=== PATIENT | male | born 1970 | race Caucasian/White ===

== ENCOUNTER 2020-09-05 11:34 | Inpatient (IN) | payer MEDICAID ==
[2020-09-05] MEDS ORDERED: Sodium Chloride 0.9% 1,000 ML IV ONE (11:41)
[2020-09-05] MEDS ORDERED: LORazepam 2 MG/ML SDV IVPUSH ONE ×2 (11:51→12:11)
--- NOTE | 2020-09-05 11:54 | EDM.PDOCBH ---
ED HPI GENERAL MEDICAL PROBLEM - General Chief Complaint: Drug or Alcohol Abuse Stated Complaint: ALCOHOL WITHDRAWALS Time Seen by Provider: 09/05/20 11:36 Source of Information: Reports: Patient History Limitations: Reports: No Limitations - History of Present Illness INITIAL COMMENTS - FREE TEXT/NARRATIVE: HISTORY AND PHYSICAL: History of present illness: Patient is a 50-year-old male who presents to the emergency room with alcohol withdrawal symptoms. He states he has had a longstanding history with alcohol abuse and recently went on a 2-week pandya in which he has been drinking 750 mL of vodka daily. Prior to this pandya he had completed alcohol treatment at [facility]. States he has seizures when trying to "come off on my own". Patient's last drink was last evening around midnight. He states he woke up this morning feeling tremulous, anxious and slightly nauseated. He is requesting help with abstaining from alcohol use. Patient denies any fever, chi lls, headache, change in vision, syncope or near syncope. Denies any chest pain, back pain, shortness of breath or cough. Denies any abdominal pain, nausea, vomiting, diarrhea, constipation or dysuria. Has not noted any blood in urine or stool. Patient has been eating and drinking appropriately. Review of systems: As per history of present illness and below otherwise all systems reviewed and negative. Past medical history: As per history of present illness and as reviewed below otherwise noncontributory. Surgical history: As per history of present illness and as reviewed below otherwise noncontributory. Social history: See social history for further information Family history: As per history of present illness and as reviewed below otherwise noncontributory. Physical exam: General: Well developed and well nourished. Alert and orientated x 3. Nontoxic in appearance and in no acute distress. Vital signs are stable and have been reviewed by me. Nursing notes were reviewed. HEENT: Atraumatic, normocephalic, pupils equal and reactive bilaterally, negative for conjunctival pallor or scleral icterus, mucous membranes moist, TMs normal bilaterally, throat clear, neck supple, nontender, trachea midline. No drooling or trismus noted. No meningeal signs. No hot potato voice noted. Lungs: Clear to auscultation, breath sounds equal bilaterally, chest nontender. Normal work of breathing, no accessory muscles used. Heart: S1S2, regular rate and rhythm without overt murmur Abdomen: Soft, nondistended, nontender. Negative for masses or hepatosplenomegaly. Negative for costovertebral tenderness. Pelvis: Stable nontender. Skin: Intact, warm, dry. No lesions or rashes noted. Hematologic: No petechiae or purpra. Mucosa appropriate color and normal nail bed color and refill. Extremities: Atraumatic, moves all extremities per self without difficulty or deficits, negative for cords or calf pain. Neurovascular unremarkable. Neuro: Awake, alert, oriented. Cranial nerves II through XII unremarkable. Cerebellum unremarkable. Motor and sensory unremarkable throughout. Exam nonfocal. Psychiatric: Mood and affect are appropriate. Normal thought process. Answering questions appropriately. Notes: CIWA 11: No confusion, visual or auditory hallucinations. Patient is agreeable to lab work, IV Ativan and fluids at this time. His vital signs remained stable. Patient does express that he would like to be admitted as he is concerned he could have seizures if he is discharged home. I have talked with the patient about today's findings, in addition to providing specific details for plan of care. He is more comfortable after receiving the IV Ativan and fluids. Dr. Amador was consulted on this case and he is agreeable to keeping him for further care and management. Diagnostics: CBC, CMP, EKG, Magnesium, ETOH, UA, Drug Screen Therapeutics: IV fluids, Ativan, banana bag Impression: Alcohol withdrawal Plan: Inpatient admission to [facility] Definitive disposition and diagnosis as appropriate pending reevaluation and review of above. - Related Data Allergies Allergy/AdvReac Type Severity Reaction Status Date / Time No Known Allergies Allergy Verified 09/05/20 11:45 Home Meds: Home Meds . [No Known Home Meds] 09/05/20 [History] ED ROS GENERAL - Review of Systems Review Of Systems: Comprehensive ROS is negative, except as noted in HPI. ED EXAM, BEHAVIORAL HEALTH - Physical Exam Exam: See Below (See dictation) COURSE, BEHAVIORAL HEALTH COMP - Course Vital Signs: Last Vital Signs Temp 97.3 F 09/05/20 11:46 Pulse 78 09/05/20 11:46 Resp 19 09/05/20 11:46 BP 153/85 H 09/05/20 11:46 Pulse Ox 98 09/05/20 11:46 Orders, Labs, Meds: Active Orders 24 hr Category Date Time Status Admission Status [Patient Status] [ADT] Stat ADT 09/05/20 14:31 Ordered EKG Documentation Completion [RC] STAT Care 09/05/20 11:54 Active DRUG SCREEN, URINE [URCHEM] Stat Lab 09/05/20 11:38 Ordered UA RFX JESSY AND CULT IF INDIC [URIN] Stat Lab 09/05/20 11:38 Ordered Laboratory Tests 09/05/20 09/05/20 09/05/20 Range/Units 11:53 11:53 13:17 WBC 4.03 (4.0-11.0) K/uL RBC 3.62 L (4.50-5.90) M/uL Hgb 13.4 (13.0-17.0) g/dL Hct 39.6 (38.0-50.0) % MCV 109.4 H (80.0-98.0) fL MCH 37.0 H (27.0-32.0) pg MCHC 33.8 (31.0-37.0) g/dL RDW Std Deviation 54.4 (28.0-62.0) fl RDW Coeff of Nia 14 (11.0-15.0) % Plt Count 88 L (150-400) K/uL MPV 10.10 (7.40-12.00) fL Neut % (Auto) 60.7 (48.0-80.0) % Lymph % (Auto) 27.5 (16.0-40.0) % [place] % (Auto) 9.4 (0.0-15.0) % Eos % (Auto) 1.7 (0.0-7.0) % Baso % (Auto) 0.7 (0.0-1.5) % Neut # (Auto) 2.4 (1.4-5.7) K/uL Lymph # (Auto) 1.1 (0.6-2.4) K/uL [place] # (Auto) 0.4 (0.0-0.8) K/uL Eos # (Auto) 0.1 (0.0-0.7) K/uL Baso # (Auto) 0.0 (0.0-0.1) K/uL Nucleated RBC % 0.0 /100WBC Nucleated RBCs # 0 K/uL Sodium 138 (136-148) mmol/L Potassium 3.9 (3.5-5.1) mmol/L Chloride 100 (98-107) mmol/L Carbon Dioxide 23.6 (21.0-32.0) mmol/L BUN 7 (7.0-18.0) mg/dL Creatinine 0.7 L (0.8-1.3) mg/dL Est Cr Clr Drug Dosing 122.14 mL/min Estimated GFR (MDRD) > 60.0 ml/min Glucose 99 (74-106) mg/dL Calcium 8.5 (8.5-10.1) mg/dL Magnesium 1.5 L (1.8-2.4) mg/dL Total Bilirubin 0.5 (0.2-1.0) mg/dL AST 37 (15-37) IU/L ALT 25 (14-63) IU/L Alkaline Phosphatase 82 (46-116) U/L Total Protein 7.2 (6.4-8.2) g/dL Albumin 3.9 (3.4-5.0) g/dL Globulin 3.3 (2.6-4.0) g/dL Albumin/Globulin Ratio 1.2 (0.9-1.6) Ethyl Alcohol 134 mg/dL SARS-CoV-2 RNA (KRUNAL) NEGATIVE (NEGATIVE) Medications Discontinued Medications Generic Name Dose Route Start Last Admin Trade Name Uzielq PRN Reason Stop Dose Admin Sodium Chloride 1,000 mls @ 999 mls/hr 09/05/20 11:41 09/05/20 12:09 Normal Saline IV 09/05/20 12:41 999 mls/hr STAT ONE Administration Multivitamins/Minerals 10 ml/ 1,011.2 mls @ 999 mls/hr 09/05/20 12:28 09/05/20 13:13 Thiamine HCl 100 mg/ Folic IV 09/05/20 13:28 999 mls/hr Acid 1 mg/ Sodium Chloride ONETIME ONE Administration Lorazepam 1 mg 09/05/20 11:51 09/05/20 12:08 Ativan IVPUSH 09/05/20 11:52 1 mg ONETIME ONE Administration Lorazepam 1 mg 09/05/20 12:11 09/05/20 12:16 Ativan IVPUSH 09/05/20 12:12 1 mg ONETIME ONE Administration Departure - Departure Time of Disposition: 14:35 Disposition: Admitted As Inpatient 66 Clinical Impression: Alcohol withdrawal syndrome Qualifiers: Complication of substance-induced condition: uncomplicated Qualified Code(s): F10.230 - Alcohol dependence with withdrawal, uncomplicated - Discharge Information Forms: ED Department Discharge Sepsis Event Note (ED) - Evaluation Sepsis Screening Result: No Definite Risk - Focused Exam Vital Signs: Vital Signs Temp Pulse Resp BP Pulse Ox 09/05/20 11:46 97.3 F 78 19 153/85 H 98 - My Orders Last 24 Hours: My Active Orders 09/05/20 11:38 DRUG SCREEN, URINE [URCHEM] Stat UA RFX JESSY AND CULT IF INDIC [URIN] Stat 09/05/20 11:54 EKG Documentation Completion [RC] STAT 09/05/20 14:31 Admission Status [Patient Status] [ADT] Stat - Assessment/Plan Last 24 Hours: My Active Orders 09/05/20 11:38 DRUG SCREEN, URINE [URCHEM] Stat UA RFX JESSY AND CULT IF INDIC [URIN] Stat 09/05/20 11:54 EKG Documentation Completion [RC] STAT 09/05/20 14:31 Admission Status [Patient Status] [ADT] Stat
[2020-09-05 12:16] LABS: BLOOD UREA NITROGEN,BUN 7 mg/dL (7.0-18.0); CARBON DIOXIDE,CO2 23.6 mmol/L (21.0-32.0); CHLORIDE,CL 100 mmol/L (98-107); GLUCOSE RANDOM 99 mg/dL (74-106); POTASSIUM,K 3.9 mmol/L (3.5-5.1); SODIUM,NA 138 mmol/L (136-148)
[2020-09-05] MEDS ORDERED: MVI, Adult with Vitamin K 10 ML, Thiamine 100 MG, Folic Acid 1 MG in Sodium Chloride 0.... IV ONE ×4 (12:28)
--- NOTE | 2020-09-05 15:24 | PCM.SN.2 ---
#1 Interpretation EKG Date: 09/05/20 Time: 12:12 Rhythm: Other (Sinus Tachycardia) Rate (Beats/Min): 101 [place]: Normal P-Wave: Present QRS: Normal ST-T: Normal QT: Normal Comparison: NA - No Prior EKG EKG Interpretation Comments: Sinus Tachycardia
[2020-09-05] MEDS ORDERED: Ondansetron 4 MG/2 ML SDV IVPUSH PRN (15:28)
[2020-09-05] MEDS ORDERED: Magnesium Sulfate/Water 2 GM/50 ML Premix Bag IV ONE (15:29)
--- NOTE | 2020-09-05 15:32 | PCM.HP.2 ---
H&P History of Present Illness - General Date of Service: 09/05/20 Admit Problem/Dx: Admission Diagnosis/Problem Admission Diagnosis/Problem Alcohol withdrawal syndrome - History of Present Illness Initial Comments - Free Text/Narative: 50 yo male with pmh of alcohol abuse patient reports finishing an inpatient r ehab last month. He was sober for two weeks then started drinking two weeks ago. He drinks 750 mls a day. He reports tremors and his last drink was last night. He presents to the ED today requesting detox. He is living in a Hotel and moved here to be closer to family. He denies any fevers, or shortness of breath - Related Data Allergies/Adverse Reactions: Allergies Allergy/AdvReac Type Severity Reaction Status Date / Time No Known Allergies Allergy Verified 09/05/20 11:45 Home Medications: Home Meds . [No Known Home Meds] 09/05/20 [History] Past Medical History - Past Health History Medical/Surgical History: Denies Medical/Surgical History Social & Family History - Tobacco Use Tobacco Use Status *Q: Never Tobacco User - Caffeine Use Caffeine Use: Reports: None - Alcohol Use Days Per Week of Alcohol Use: 7 Number of Drinks Per Day: 1 Total Drinks Per Week: 7 - Recreational Drug Use Recreational Drug Use: No H&P Review of Systems - Review of Systems: Review Of Systems: Comprehensive ROS is negative, except as noted in HPI. Exam - Exam Exam: See Below - Vital Signs Vital Signs: Last Vital Signs Temp 36.3 C 09/05/20 11:46 Pulse 78 09/05/20 11:46 Resp 19 09/05/20 11:46 BP 153/85 H 09/05/20 11:46 Pulse Ox 98 09/05/20 11:46 Weight: 74.843 kg - Exam General: Alert, Oriented HEENT: Mucosa Moist & [place] Lungs: Clear to Auscultation, Normal Respiratory Effort Cardiovascular: Regular Rate, Regular Rhythm GI/Abdominal Exam: Normal Bowel Sounds, Soft, Non-Tender Extremities: Non-Tender, No Pedal Edema Skin: Warm, Dry, Intact - Patient Data Lab Results Last 24 hrs: Laboratory Results - last 24 hr 09/05/20 09/05/20 09/05/20 Range/Units 11:53 11:53 13:15 WBC 4.03 (4.0-11.0) K/uL RBC 3.62 L (4.50-5.90) M/uL Hgb 13.4 (13.0-17.0) g/dL Hct 39.6 (38.0-50.0) % MCV 109.4 H (80.0-98.0) fL MCH 37.0 H (27.0-32.0) pg MCHC 33.8 (31.0-37.0) g/dL RDW Std Deviation 54.4 (28.0-62.0) fl RDW Coeff of Nia 14 (11.0-15.0) % Plt Count 88 L (150-400) K/uL MPV 10.10 (7.40-12.00) fL Neut % (Auto) 60.7 (48.0-80.0) % Lymph % (Auto) 27.5 (16.0-40.0) % [facility] % (Auto) 9.4 (0.0-15.0) % Eos % (Auto) 1.7 (0.0-7.0) % Baso % (Auto) 0.7 (0.0-1.5) % Neut # (Auto) 2.4 (1.4-5.7) K/uL Lymph # (Auto) 1.1 (0.6-2.4) K/uL [facility] # (Auto) 0.4 (0.0-0.8) K/uL Eos # (Auto) 0.1 (0.0-0.7) K/uL Baso # (Auto) 0.0 (0.0-0.1) K/uL Nucleated RBC % 0.0 /100WBC Nucleated RBCs # 0 K/uL Sodium 138 (136-148) mmol/L Potassium 3.9 (3.5-5.1) mmol/L Chloride 100 (98-107) mmol/L Carbon Dioxide 23.6 (21.0-32.0) mmol/L BUN 7 (7.0-18.0) mg/dL Creatinine 0.7 L (0.8-1.3) mg/dL Est Cr Clr Drug Dosing 122.14 mL/min Estimated GFR (MDRD) > 60.0 ml/min Glucose 99 (74-106) mg/dL Calcium 8.5 (8.5-10.1) mg/dL Magnesium 1.5 L (1.8-2.4) mg/dL Total Bilirubin 0.5 (0.2-1.0) mg/dL AST 37 (15-37) IU/L ALT 25 (14-63) IU/L Alkaline Phosphatase 82 (46-116) U/L Total Protein 7.2 (6.4-8.2) g/dL Albumin 3.9 (3.4-5.0) g/dL Globulin 3.3 (2.6-4.0) g/dL Albumin/Globulin Ratio 1.2 (0.9-1.6) Urine Color YELLOW Urine Appearance CLEAR Urine pH 6.0 (5.0-8.0) Ur Specific [place] 1.025 (1.001-1.035) Urine Protein NEGATIVE (NEGATIVE) mg/dL Urine Glucose (UA) NEGATIVE (NEGATIVE) mg/dL Urine Ketones TRACE H (NEGATIVE) mg/dL Urine Occult Blood NEGATIVE (NEGATIVE) Urine Nitrite NEGATIVE (NEGATIVE) Urine Bilirubin NEGATIVE (NEGATIVE) Urine Urobilinogen 0.2 (<2.0) EU/dL Ur Leukocyte Esterase NEGATIVE (NEGATIVE) Urine Opiates Screen (NEGATIVE) Ur Oxycodone Screen (NEGATIVE) Urine Methadone Screen (NEGATIVE) Ur Barbiturates Screen (NEGATIVE) Ur Phencyclidine Scrn (NEGATIVE) Ur Amphetamine Screen (NEGATIVE) U Methamphetamines Scrn (NEGATIVE) U Benzodiazepines Scrn (NEGATIVE) U Cocaine Metab Screen (NEGATIVE) U Marijuana (THC) Screen (NEGATIVE) Ethyl Alcohol 134 mg/dL SARS-CoV-2 RNA (KRUNAL) (NEGATIVE) 09/05/20 09/05/20 Range/Units 13:15 13:17 WBC (4.0-11.0) K/uL RBC (4.50-5.90) M/uL Hgb (13.0-17.0) g/dL Hct (38.0-50.0) % MCV (80.0-98.0) fL MCH (27.0-32.0) pg MCHC (31.0-37.0) g/dL RDW Std Deviation (28.0-62.0) fl RDW Coeff of Nia (11.0-15.0) % Plt Count (150-400) K/uL MPV (7.40-12.00) fL Neut % (Auto) (48.0-80.0) % Lymph % (Auto) (16.0-40.0) % [facility] % (Auto) (0.0-15.0) % Eos % (Auto) (0.0-7.0) % Baso % (Auto) (0.0-1.5) % Neut # (Auto) (1.4-5.7) K/uL Lymph # (Auto) (0.6-2.4) K/uL [place] # (Auto) (0.0-0.8) K/uL Eos # (Auto) (0.0-0.7) K/uL Baso # (Auto) (0.0-0.1) K/uL Nucleated RBC % /100WBC Nucleated RBCs # K/uL Sodium (136-148) mmol/L Potassium (3.5-5.1) mmol/L Chloride (98-107) mmol/L Carbon Dioxide (21.0-32.0) mmol/L BUN (7.0-18.0) mg/dL Creatinine (0.8-1.3) mg/dL Est Cr Clr Drug Dosing mL/min Estimated GFR (MDRD) ml/min Glucose (74-106) mg/dL Calcium (8.5-10.1) mg/dL Magnesium (1.8-2.4) mg/dL Total Bilirubin (0.2-1.0) mg/dL AST (15-37) IU/L ALT (14-63) IU/L Alkaline Phosphatase (46-116) U/L Total Protein (6.4-8.2) g/dL Albumin (3.4-5.0) g/dL Globulin (2.6-4.0) g/dL Albumin/Globulin Ratio (0.9-1.6) Urine Color Urine Appearance Urine pH (5.0-8.0) Ur Specific [place] (1.001-1.035) Urine Protein (NEGATIVE) mg/dL Urine Glucose (UA) (NEGATIVE) mg/dL Urine Ketones (NEGATIVE) mg/dL Urine Occult Blood (NEGATIVE) Urine Nitrite (NEGATIVE) Urine Bilirubin (NEGATIVE) Urine Urobilinogen (<2.0) EU/dL Ur Leukocyte Esterase (NEGATIVE) Urine Opiates Screen NEGATIVE (NEGATIVE) Ur Oxycodone Screen NEGATIVE (NEGATIVE) Urine Methadone Screen NEGATIVE (NEGATIVE) Ur Barbiturates Screen NEGATIVE (NEGATIVE) Ur Phencyclidine Scrn NEGATIVE (NEGATIVE) Ur Amphetamine Screen NEGATIVE (NEGATIVE) U Methamphetamines Scrn NEGATIVE (NEGATIVE) U Benzodiazepines Scrn NEGATIVE (NEGATIVE) U Cocaine Metab Screen NEGATIVE (NEGATIVE) U Marijuana (THC) Screen NEGATIVE (NEGATIVE) Ethyl Alcohol mg/dL SARS-CoV-2 RNA (KRUNAL) NEGATIVE (NEGATIVE) Result Diagrams: 09/05/20 11:53 09/05/20 11:53 Sepsis Event Note - Evaluation Sepsis Screening Result: No Definite Risk - Focused Exam Vital Signs: Vital Signs Temp Pulse Resp BP Pulse Ox 09/05/20 11:46 36.3 C 78 19 153/85 H 98 Problem List Initiated/Reviewed/Updated: Yes Orders Last 24hrs: Active Orders 24 hr Category Date Time Status Admission Status [Patient Status] [ADT] Stat ADT 09/05/20 14:31 Active Antiembolic Devices [RC] PER UNIT ROUTINE Care 09/05/20 15:29 Ordered EKG Documentation Completion [RC] STAT Care 09/05/20 11:54 Active Oxygen Therapy [RC] PRN Care 09/05/20 15:28 Ordered VTE/DVT Education [RC] PER UNIT ROUTINE Care 09/05/20 15:28 Ordered Vital Signs [RC] Q4H Care 09/05/20 15:28 Ordered Regular Diet [DIET] Diet 09/05/20 Breakfast Ordered CBC WITH AUTO DIFF [HEME] AM Lab 09/06/20 05:11 Ordered COMPREHENSIVE METABOLIC PN,CMP [CHEM] AM Lab 09/06/20 05:11 Ordered MAGNESIUM [CHEM] AM Lab 09/06/20 05:11 Ordered PHOSPHORUS [CHEM] AM Lab 09/06/20 05:11 Ordered Folic Acid Med 09/06/20 09:00 Ordered 1 mg PO DAILY LORazepam [Ativan] Med 09/05/20 15:22 Ordered See Protocol IVPUSH Q4H PRN Magnesium Sulfate/Water [Magnesium Sulfate in Water Med 09/05/20 15:29 Once Premix] 2 gm IV ONETIME ONE Ondansetron [Zofran] Med 09/05/20 15:28 Ordered 4 mg IVPUSH Q4H PRN Thiamine [Vitamin B-1] 100 mg Med 09/06/20 09:00 Active Sodium Chloride 0.9% [Normal Saline] 100 ml IV DAILY Sequential Compression Device [OM.PC] Per Unit Routine Oth 09/05/20 15:28 Ordered Resuscitation Status Routine Resus Stat 09/05/20 15:28 Ordered Medication Orders Folic Acid (Folic Acid) 1 mg PO DAILY [place] Thiamine HCl 100 mg/ Sodium (Chloride) 101 mls @ 202 mls/hr IV DAILY [place] Lorazepam (Ativan) 0 mg IVPUSH Q4H PRN; Protocol PRN Reason: CIWAA Ondansetron HCl (Zofran) 4 mg IVPUSH Q4H PRN PRN Reason: Nausea Assessment/Plan Comment:: 50 yo male admitted for ETOH detox. We will place on CIWAA protocol with prn ativan, thiamin and folic acid.
[2020-09-05] MEDS ORDERED: Magnesium Sulfate/Water 2 GM/50 ML BAG IV ONE (15:45)
[2020-09-05] MEDS: LORazepam 2 MG/ML SDV IVPUSH PRN (16:00)
[2020-09-06 06:40] LABS: BLOOD UREA NITROGEN,BUN 5 mg/dL (7.0-18.0); CARBON DIOXIDE,CO2 26.9 mmol/L (21.0-32.0); CHLORIDE,CL 101 mmol/L (98-107); GLUCOSE RANDOM 91 mg/dL (74-106); POTASSIUM,K 4.1 mmol/L (3.5-5.1); SODIUM,NA 137 mmol/L (136-148)
[2020-09-06] MEDS: LORazepam 2 MG/ML SDV IVPUSH PRN (08:11)
[2020-09-06] MEDS: Folic Acid 1 MG Tab PO SCH (08:11)
[2020-09-06] MEDS ORDERED: Magnesium Sulfate (4.06 MEQ/ML) 1 GM/2 ML SDV IV ONE (08:25)
[2020-09-06] MEDS: Thiamine 100 MG in Sodium Chloride 0.9% 100 ML IV SCH (09:00)
[2020-09-06] MEDS: Diazepam 2 MG Tab PO SCH ×2 (11:12→21:01)
[2020-09-06] MEDS: Lactated Ringers 1,000 ML IV SCH ×2 (11:13→21:23)
[2020-09-06] MEDS: Nicotine 14 MG/24 Hr Patch TRDERM SCH (11:13)
--- NOTE | 2020-09-06 11:41 | PCM.PN ---
<Rayray Garces - Last Filed: 09/06/20 11:42> - General Info Date of Service: 09/06/20 Subjective Update: Feeling better but still having overnight "weird dreams" ; no hallucinations. Mild tremors w. fatigue. +Nausea and loose stools. No Vomiting and or abd. pain this AM Functional Status: Reports: Pain Controlled - Review of Systems General: Reports: Fatigue HEENT: Reports: No Symptoms Pulmonary: Reports: No Symptoms Cardiovascular: Reports: No Symptoms Gastrointestinal: Reports: Abdominal Pain, Diarrhea, Nausea. Denies: C onstipation, Vomiting Genitourinary: Reports: No Symptoms Musculoskeletal: Reports: No Symptoms Skin: Reports: No Symptoms Neurological: Reports: Headache, Tremors. Denies: Confusion, Dizziness, Weakness Psychiatric: Reports: Anxiety. Denies: Hallucinations - Patient Data Vitals - Most Recent: Last Vital Signs Temp 98.4 F 09/06/20 07:45 Pulse 87 09/06/20 07:45 Resp 16 09/06/20 07:45 BP 127/78 09/06/20 07:45 Pulse Ox 94 L 09/06/20 07:45 Weight - Most Recent: 78.471 kg I&O - Last 24 Hours: Intake & Output 09/05/20 09/06/20 09/06/20 22:59 06:59 14:59 Intake Total 650 Output Total 800 Balance -150 Lab Results Last 24 Hours: Laboratory Results - last 24 hr 09/05/20 09/05/20 09/05/20 Range/Units 11:53 11:53 13:15 WBC 4.03 (4.0-11.0) K/uL RBC 3.62 L (4.50-5.90) M/uL Hgb 13.4 (13.0-17.0) g/dL Hct 39.6 (38.0-50.0) % MCV 109.4 H (80.0-98.0) fL MCH 37.0 H (27.0-32.0) pg MCHC 33.8 (31.0-37.0) g/dL RDW Std Deviation 54.4 (28.0-62.0) fl RDW Coeff of Nia 14 (11.0-15.0) % Plt Count 88 L (150-400) K/uL MPV 10.10 (7.40-12.00) fL Neut % (Auto) 60.7 (48.0-80.0) % Lymph % (Auto) 27.5 (16.0-40.0) % [place] % (Auto) 9.4 (0.0-15.0) % Eos % (Auto) 1.7 (0.0-7.0) % Baso % (Auto) 0.7 (0.0-1.5) % Neut # (Auto) 2.4 (1.4-5.7) K/uL Lymph # (Auto) 1.1 (0.6-2.4) K/uL [place] # (Auto) 0.4 (0.0-0.8) K/uL Eos # (Auto) 0.1 (0.0-0.7) K/uL Baso # (Auto) 0.0 (0.0-0.1) K/uL Nucleated RBC % 0.0 /100WBC Nucleated RBCs # 0 K/uL Sodium 138 (136-148) mmol/L Potassium 3.9 (3.5-5.1) mmol/L Chloride 100 (98-107) mmol/L Carbon Dioxide 23.6 (21.0-32.0) mmol/L BUN 7 (7.0-18.0) mg/dL Creatinine 0.7 L (0.8-1.3) mg/dL Est Cr Clr Drug Dosing 122.14 mL/min Estimated GFR (MDRD) > 60.0 ml/min Glucose 99 (74-106) mg/dL Calcium 8.5 (8.5-10.1) mg/dL Phosphorus (2.6-4.7) mg/dL Magnesium 1.5 L (1.8-2.4) mg/dL Total Bilirubin 0.5 (0.2-1.0) mg/dL AST 37 (15-37) IU/L ALT 25 (14-63) IU/L Alkaline Phosphatase 82 (46-116) U/L Total Protein 7.2 (6.4-8.2) g/dL Albumin 3.9 (3.4-5.0) g/dL Globulin 3.3 (2.6-4.0) g/dL Albumin/Globulin Ratio 1.2 (0.9-1.6) Urine Color YELLOW Urine Appearance CLEAR Urine pH 6.0 (5.0-8.0) Ur Specific [place] 1.025 (1.001-1.035) Urine Protein NEGATIVE (NEGATIVE) mg/dL Urine Glucose (UA) NEGATIVE (NEGATIVE) mg/dL Urine Ketones TRACE H (NEGATIVE) mg/dL Urine Occult Blood NEGATIVE (NEGATIVE) Urine Nitrite NEGATIVE (NEGATIVE) Urine Bilirubin NEGATIVE (NEGATIVE) Urine Urobilinogen 0.2 (<2.0) EU/dL Ur Leukocyte Esterase NEGATIVE (NEGATIVE) Urine Opiates Screen (NEGATIVE) Ur Oxycodone Screen (NEGATIVE) Urine Methadone Screen (NEGATIVE) Ur Barbiturates Screen (NEGATIVE) Ur Phencyclidine Scrn (NEGATIVE) Ur Amphetamine Screen (NEGATIVE) U Methamphetamines Scrn (NEGATIVE) U Benzodiazepines Scrn (NEGATIVE) U Cocaine Metab Screen (NEGATIVE) U Marijuana (THC) Screen (NEGATIVE) Ethyl Alcohol 134 mg/dL SARS-CoV-2 RNA (KRUNAL) (NEGATIVE) 09/05/20 09/05/20 09/06/20 Range/Units 13:15 13:17 05:40 WBC 4.01 (4.0-11.0) K/uL RBC 3.33 L (4.50-5.90) M/uL Hgb 12.2 L (13.0-17.0) g/dL Hct 36.4 L (38.0-50.0) % MCV 109.3 H (80.0-98.0) fL MCH 36.6 H (27.0-32.0) pg MCHC 33.5 (31.0-37.0) g/dL RDW Std Deviation 55.3 (28.0-62.0) fl RDW Coeff of Nia 14 (11.0-15.0) % Plt Count 59 L (150-400) K/uL MPV 10.60 (7.40-12.00) fL Neut % (Auto) 60.9 (48.0-80.0) % Lymph % (Auto) 27.4 (16.0-40.0) % [place] % (Auto) 9.2 (0.0-15.0) % Eos % (Auto) 2.0 (0.0-7.0) % Baso % (Auto) 0.5 (0.0-1.5) % Neut # (Auto) 2.4 (1.4-5.7) K/uL Lymph # (Auto) 1.1 (0.6-2.4) K/uL [place] # (Auto) 0.4 (0.0-0.8) K/uL Eos # (Auto) 0.1 (0.0-0.7) K/uL Baso # (Auto) 0.0 (0.0-0.1) K/uL Nucleated RBC % 0.0 /100WBC Nucleated RBCs # 0 K/uL Sodium (136-148) mmol/L Potassium (3.5-5.1) mmol/L Chloride (98-107) mmol/L Carbon Dioxide (21.0-32.0) mmol/L BUN (7.0-18.0) mg/dL Creatinine (0.8-1.3) mg/dL Est Cr Clr Drug Dosing mL/min Estimated GFR (MDRD) ml/min Glucose (74-106) mg/dL Calcium (8.5-10.1) mg/dL Phosphorus (2.6-4.7) mg/dL Magnesium (1.8-2.4) mg/dL Total Bilirubin (0.2-1.0) mg/dL AST (15-37) IU/L ALT (14-63) IU/L Alkaline Phosphatase (46-116) U/L Total Protein (6.4-8.2) g/dL Albumin (3.4-5.0) g/dL Globulin (2.6-4.0) g/dL Albumin/Globulin Ratio (0.9-1.6) Urine Color Urine Appearance Urine pH (5.0-8.0) Ur Specific [place] (1.001-1.035) Urine Protein (NEGATIVE) mg/dL Urine Glucose (UA) (NEGATIVE) mg/dL Urine Ketones (NEGATIVE) mg/dL Urine Occult Blood (NEGATIVE) Urine Nitrite (NEGATIVE) Urine Bilirubin (NEGATIVE) Urine Urobilinogen (<2.0) EU/dL Ur Leukocyte Esterase (NEGATIVE) Urine Opiates Screen NEGATIVE (NEGATIVE) Ur Oxycodone Screen NEGATIVE (NEGATIVE) Urine Methadone Screen NEGATIVE (NEGATIVE) Ur Barbiturates Screen NEGATIVE (NEGATIVE) Ur Phencyclidine Scrn NEGATIVE (NEGATIVE) Ur Amphetamine Screen NEGATIVE (NEGATIVE) U Methamphetamines Scrn NEGATIVE (NEGATIVE) U Benzodiazepines Scrn NEGATIVE (NEGATIVE) U Cocaine Metab Screen NEGATIVE (NEGATIVE) U Marijuana (THC) Screen NEGATIVE (NEGATIVE) Ethyl Alcohol mg/dL SARS-CoV-2 RNA (KRUNAL) NEGATIVE (NEGATIVE) 09/06/20 Range/Units 05:40 WBC (4.0-11.0) K/uL RBC (4.50-5.90) M/uL Hgb (13.0-17.0) g/dL Hct (38.0-50.0) % MCV (80.0-98.0) fL MCH (27.0-32.0) pg MCHC (31.0-37.0) g/dL RDW Std Deviation (28.0-62.0) fl RDW Coeff of Nia (11.0-15.0) % Plt Count (150-400) K/uL MPV (7.40-12.00) fL Neut % (Auto) (48.0-80.0) % Lymph % (Auto) (16.0-40.0) % [place] % (Auto) (0.0-15.0) % Eos % (Auto) (0.0-7.0) % Baso % (Auto) (0.0-1.5) % Neut # (Auto) (1.4-5.7) K/uL Lymph # (Auto) (0.6-2.4) K/uL [place] # (Auto) (0.0-0.8) K/uL Eos # (Auto) (0.0-0.7) K/uL Baso # (Auto) (0.0-0.1) K/uL Nucleated RBC % /100WBC Nucleated RBCs # K/uL Sodium 137 (136-148) mmol/L Potassium 4.1 (3.5-5.1) mmol/L Chloride 101 (98-107) mmol/L Carbon Dioxide 26.9 (21.0-32.0) mmol/L BUN 5 L (7.0-18.0) mg/dL Creatinine 0.7 L (0.8-1.3) mg/dL Est Cr Clr Drug Dosing 122.14 mL/min Estimated GFR (MDRD) > 60.0 ml/min Glucose 91 (74-106) mg/dL Calcium 8.4 L (8.5-10.1) mg/dL Phosphorus 2.7 (2.6-4.7) mg/dL Magnesium 1.7 L (1.8-2.4) mg/dL Total Bilirubin 1.3 H (0.2-1.0) mg/dL AST 39 H (15-37) IU/L ALT 25 (14-63) IU/L Alkaline Phosphatase 70 (46-116) U/L Total Protein 5.9 L (6.4-8.2) g/dL Albumin 3.2 L (3.4-5.0) g/dL Globulin 2.7 (2.6-4.0) g/dL Albumin/Globulin Ratio 1.2 (0.9-1.6) Urine Color Urine Appearance Urine pH (5.0-8.0) Ur Specific [place] (1.001-1.035) Urine Protein (NEGATIVE) mg/dL Urine Glucose (UA) (NEGATIVE) mg/dL Urine Ketones (NEGATIVE) mg/dL Urine Occult Blood (NEGATIVE) Urine Nitrite (NEGATIVE) Urine Bilirubin (NEGATIVE) Urine Urobilinogen (<2.0) EU/dL Ur Leukocyte Esterase (NEGATIVE) Urine Opiates Screen (NEGATIVE) Ur Oxycodone Screen (NEGATIVE) Urine Methadone Screen (NEGATIVE) Ur Barbiturates Screen (NEGATIVE) Ur Phencyclidine Scrn (NEGATIVE) Ur Amphetamine Screen (NEGATIVE) U Methamphetamines Scrn (NEGATIVE) U Benzodiazepines Scrn (NEGATIVE) U Cocaine Metab Screen (NEGATIVE) U Marijuana (THC) Screen (NEGATIVE) Ethyl Alcohol mg/dL SARS-CoV-2 RNA (KRUNAL) (NEGATIVE) Med Orders - Current: Current Medications Diazepam (Valium) 5 mg PO BID [facility] Last Admin: 09/06/20 11:12 Dose: 5 mg Documented by: Folic Acid (Folic Acid) 1 mg PO DAILY [facility] Last Admin: 09/06/20 08:11 Dose: 1 mg Documented by: Thiamine HCl 100 mg/ Sodium (Chloride) 101 mls @ 202 mls/hr IV DAILY [facility] Last Admin: 09/06/20 09:00 Dose: 202 mls/hr Documented by: Lactated Ringer's (Ringers, Lactated) 1,000 mls @ 100 mls/hr IV Q10H [facility] Last Admin: 09/06/20 11:13 Dose: 100 mls/hr Documented by: Lorazepam (Ativan) 0 mg IVPUSH Q4H PRN; Protocol PRN Reason: CIWAA Last Admin: 09/06/20 08:11 Dose: 1 mg Documented by: Nicotine (Habitrol) 14 mg TRDERM DAILY [facility] Last Admin: 09/06/20 11:13 Dose: 14 mg Documented by: Ondansetron HCl (Zofran) 4 mg IVPUSH Q4H PRN PRN Reason: Nausea Last Admin: 09/06/20 07:44 Dose: 4 mg Documented by: Discontinued Medications Sodium Chloride (Normal Saline) 1,000 mls @ 999 mls/hr IV STAT ONE Stop: 09/05/20 12:41 Last Admin: 09/05/20 12:09 Dose: 999 mls/hr Documented by: Multivitamins/Minerals 10 ml/Thiamine HCl 100 mg/ Folic Acid 1 mg/ Sodium Chloride 1,011.2 mls @ 999 mls/hr IV ONETIME ONE Stop: 09/05/20 13:28 Last Admin: 09/05/20 13:13 Dose: 999 mls/hr Documented by: Magnesium Sulfate (Magnesium Sulfate In Water Premix) 2 gm in 50 mls @ 50 mls/hr IV ONETIME ONE Stop: 09/05/20 16:44 Last Admin: 09/05/20 16:00 Dose: 50 mls/hr Documented by: Magnesium Sulfate 1 gm/ Sodium (Chloride) 52 mls @ 104 mls/hr IV ONETIME ONE Stop: 09/06/20 09:14 Last Admin: 09/06/20 09:55 Dose: 104 mls/hr Documented by: Lorazepam (Ativan) 1 mg IVPUSH ONETIME ONE Stop: 09/05/20 11:52 Last Admin: 09/05/20 12:08 Dose: 1 mg Documented by: Lorazepam (Ativan) 1 mg IVPUSH ONETIME ONE Stop: 09/05/20 12:12 Last Admin: 09/05/20 12:16 Dose: 1 mg Documented by: Magnesium Sulfate (Magnesium Sulfate In Water Premix) 2 gm IV ONETIME ONE Stop: 09/05/20 15:30 - Exam General: Alert, Oriented HEENT: EOMI Neck: Supple Lungs: Clear to Auscultation, Normal Respiratory Effort Cardiovascular: Regular Rate, Regular Rhythm GI/Abdominal Exam: Soft, Non-Tender Back Exam: Full Range of Motion Neurological: No New Focal Deficit Psy/Mental Status: Alert. No: Anxious Sepsis Event Note - Evaluation Sepsis Screening Result: No Definite Risk - Focused Exam Vital Signs: Vital Signs Temp Pulse Resp BP Pulse Ox 09/06/20 07:45 98.4 F 87 16 127/78 94 L 09/06/20 04:04 97.6 F 85 16 110/80 95 09/05/20 23:48 97.2 F 85 16 127/79 93 L - Problem List Review Problem List Initiated/Reviewed/Updated: Yes - Plan Plan:: 50 yo male admitted for ETOH detox. Day # 2 of ETOH withdrawal: Latest CIWAA: 8 ; continue PRN Ativan Will also start Valium 5 mg BID and wean down as needed. Continue folic/thiamin supplementation. Tremor and concern for decrease oral intake : will start gentle hydration of LR 100 cc/hr ; total 1L Start nicotine patch. Hypomagnesemia: 1 gram Mg given this AM . <Isaiah Esparza - Last Filed: 09/07/20 20:51> - Patient Data Vitals - Most Recent: Last Vital Signs Temp 36.7 C 09/07/20 16:09 Pulse 84 09/07/20 16:09 Resp 20 09/07/20 16:09 BP 124/81 09/07/20 16:09 Pulse Ox 94 L 09/07/20 16:09 I&O - Last 24 Hours: Intake & Output 09/07/20 09/07/20 09/07/20 06:59 14:59 22:59 Intake Total 1604 2000 Output Total 500 Balance 1104 2000 Lab Results Last 24 Hours: Laboratory Results - last 24 hr 09/07/20 09/07/20 Range/Units 05:41 05:41 WBC 2.97 L (4.0-11.0) K/uL RBC 3.45 L (4.50-5.90) M/uL Hgb 12.8 L (13.0-17.0) g/dL Hct 38.0 (38.0-50.0) % MCV 110.1 H (80.0-98.0) fL MCH 37.1 H (27.0-32.0) pg MCHC 33.7 (31.0-37.0) g/dL RDW Std Deviation 55.1 (28.0-62.0) fl RDW Coeff of Nia 14 (11.0-15.0) % Plt Count 50 L (150-400) K/uL MPV 11.20 (7.40-12.00) fL Neut % (Auto) 53.1 (48.0-80.0) % Lymph % (Auto) 35.7 (16.0-40.0) % [place] % (Auto) 7.1 (0.0-15.0) % Eos % (Auto) 3.4 (0.0-7.0) % Baso % (Auto) 0.7 (0.0-1.5) % Neut # (Auto) 1.6 (1.4-5.7) K/uL Lymph # (Auto) 1.1 (0.6-2.4) K/uL [place] # (Auto) 0.2 (0.0-0.8) K/uL Eos # (Auto) 0.1 (0.0-0.7) K/uL Baso # (Auto) 0.0 (0.0-0.1) K/uL Nucleated RBC % 0.0 /100WBC Nucleated RBCs # 0 K/uL Sodium 139 (136-148) mmol/L Potassium 3.6 (3.5-5.1) mmol/L Chloride 103 (98-107) mmol/L Carbon Dioxide 27.3 (21.0-32.0) mmol/L BUN 5 L (7.0-18.0) mg/dL Creatinine 0.7 L (0.8-1.3) mg/dL Est Cr Clr Drug Dosing 122.14 mL/min Estimated GFR (MDRD) > 60.0 ml/min Glucose 91 (74-106) mg/dL Calcium 8.4 L (8.5-10.1) mg/dL Total Bilirubin 0.7 (0.2-1.0) mg/dL AST 80 H (15-37) IU/L ALT 43 (14-63) IU/L Alkaline Phosphatase 65 (46-116) U/L Total Protein 6.1 L (6.4-8.2) g/dL Albumin 3.1 L (3.4-5.0) g/dL Globulin 3.0 (2.6-4.0) g/dL Albumin/Globulin Ratio 1.0 (0.9-1.6) Med Orders - Current: Current Medications Folic Acid (Folic Acid) 1 mg PO DAILY [facility] Last Admin: 09/07/20 08:50 Dose: 1 mg Documented by: Thiamine HCl 100 mg/ Sodium (Chloride) 101 mls @ 202 mls/hr IV DAILY [facility] Last Admin: 09/07/20 09:22 Dose: 202 mls/hr Documented by: Lactated Ringer's (Ringers, Lactated) 1,000 mls @ 100 mls/hr IV Q10H [facility] Last Admin: 09/07/20 20:19 Dose: 100 mls/hr Documented by: Lorazepam (Ativan) 0 mg IVPUSH Q4H PRN; Protocol PRN Reason: CIWAA Last Admin: 09/06/20 08:11 Dose: 1 mg Documented by: Nicotine (Habitrol) 14 mg TRDERM DAILY [facility] Last Admin: 09/07/20 08:50 Dose: 14 mg Documented by: Ondansetron HCl (Zofran) 4 mg IVPUSH Q4H PRN PRN Reason: Nausea Last Admin: 09/06/20 07:44 Dose: 4 mg Documented by: Discontinued Medications Diazepam (Valium) 5 mg PO BID [facility] Last Admin: 09/06/20 21:01 Dose: 5 mg Documented by: Sodium Chloride (Normal Saline) 1,000 mls @ 999 mls/hr IV STAT ONE Stop: 09/05/20 12:41 Last Admin: 09/05/20 12:09 Dose: 999 mls/hr Documented by: Multivitamins/Minerals 10 ml/Thiamine HCl 100 mg/ Folic Acid 1 mg/ Sodium Chloride 1,011.2 mls @ 999 mls/hr IV ONETIME ONE Stop: 09/05/20 13:28 Last Admin: 09/05/20 13:13 Dose: 999 mls/hr Documented by: Magnesium Sulfate (Magnesium Sulfate In Water Premix) 2 gm in 50 mls @ 50 mls/hr IV ONETIME ONE Stop: 09/05/20 16:44 Last Admin: 09/05/20 16:00 Dose: 50 mls/hr Documented by: Magnesium Sulfate 1 gm/ Sodium (Chloride) 52 mls @ 104 mls/hr IV ONETIME ONE Stop: 09/06/20 09:14 Last Admin: 09/06/20 09:55 Dose: 104 mls/hr Documented by: Lorazepam (Ativan) 1 mg IVPUSH ONETIME ONE Stop: 09/05/20 11:52 Last Admin: 09/05/20 12:08 Dose: 1 mg Documented by: Lorazepam (Ativan) 1 mg IVPUSH ONETIME ONE Stop: 09/05/20 12:12 Last Admin: 09/05/20 12:16 Dose: 1 mg Documented by: Magnesium Sulfate (Magnesium Sulfate In Water Premix) 2 gm IV ONETIME ONE Stop: 09/05/20 15:30 Sepsis Event Note - Focused Exam Vital Signs: Vital Signs Temp Pulse Resp BP BP Pulse Ox 09/07/20 16:09 36.7 C 84 20 124/81 94 L 09/07/20 14:01 37.1 C 80 18 140/101 H 95 09/07/20 12:00 36.9 C 82 18 133/76 96 - Problem List & Annotations (1) Alcohol withdrawal syndrome SNOMED Code(s): 082914727 Code(s): F10.239 - ALCOHOL DEPENDENCE WITH WITHDRAWAL, UNSPECIFIED Status: Acute Current Visit: Yes Qualifiers: Complication of substance-induced condition: uncomplicated Qualified Code(s): F10.230 - Alcohol dependence with withdrawal, uncomplicated (2) Hypomagnesemia SNOMED Code(s): 646038512 Code(s): E83.42 - HYPOMAGNESEMIA Status: Acute Current Visit: Yes - Plan Plan:: I have seen and evaluated the patient. I have discussed findings and treatment plan with resident. I agree with the assessment and plan in the following note.
[2020-09-07 06:27] LABS: BLOOD UREA NITROGEN,BUN 5 mg/dL (7.0-18.0); CARBON DIOXIDE,CO2 27.3 mmol/L (21.0-32.0); CHLORIDE,CL 103 mmol/L (98-107); GLUCOSE RANDOM 91 mg/dL (74-106); POTASSIUM,K 3.6 mmol/L (3.5-5.1); SODIUM,NA 139 mmol/L (136-148)
[2020-09-07] MEDS: Folic Acid 1 MG Tab PO SCH (08:50)
[2020-09-07] MEDS: Lactated Ringers 1,000 ML IV SCH ×3 (08:50→20:19)
[2020-09-07] MEDS: Nicotine 14 MG/24 Hr Patch TRDERM SCH (08:50)
[2020-09-07] MEDS: Thiamine 100 MG in Sodium Chloride 0.9% 100 ML IV SCH (09:22)
--- NOTE | 2020-09-07 12:46 | PCM.PN ---
<Rayray Garces - Last Filed: 09/07/20 12:48> - General Info Date of Service: 09/07/20 Subjective Update: Bedside: c.o of strong overnight dreams, lighthedeness this AM w. Nausea. Decreased Appetite. - Review of Systems General: Denies: Appetite HEENT: Reports: No Symptoms Pulmonary: Reports: No Symptoms Cardiovascular: Reports: No Symptoms Gastrointestinal: Reports: Diarrhea. Denies: Abdominal Pain, Constipation Genitourinary: Reports: No Symptoms Musculoskeletal: Reports: No Symptoms Skin: Reports: No Symptoms Neurological: Reports: Headache, Tremors Psychiatric: Reports: Anxiety - Patient Data Vitals - Most Recent: Last Vital Signs Temp 98.4 F 09/07/20 12:00 Pulse 82 09/07/20 12:00 Resp 18 09/07/20 12:00 BP 133/76 09/07/20 12:00 Pulse Ox 96 09/07/20 12:00 Weight - Most Recent: 78.471 kg I&O - Last 24 Hours: Intake & Output 09/06/20 09/07/20 09/07/20 22:59 06:59 14:59 Intake Total 1300 1604 Output Total 350 500 Balance 950 1104 Lab Results Last 24 Hours: Laboratory Results - last 24 hr 09/07/20 09/07/20 Range/Units 05:41 05:41 WBC 2.97 L (4.0-11.0) K/uL RBC 3.45 L (4.50-5.90) M/uL Hgb 12.8 L (13.0-17.0) g/dL Hct 38.0 (38.0-50.0) % MCV 110.1 H (80.0-98.0) fL MCH 37.1 H (27.0-32.0) pg MCHC 33.7 (31.0-37.0) g/dL RDW Std Deviation 55.1 (28.0-62.0) fl RDW Coeff of Nia 14 (11.0-15.0) % Plt Count 50 L (150-400) K/uL MPV 11.20 (7.40-12.00) fL Neut % (Auto) 53.1 (48.0-80.0) % Lymph % (Auto) 35.7 (16.0-40.0) % Glades % (Auto) 7.1 (0.0-15.0) % Eos % (Auto) 3.4 (0.0-7.0) % Baso % (Auto) 0.7 (0.0-1.5) % Neut # (Auto) 1.6 (1.4-5.7) K/uL Lymph # (Auto) 1.1 (0.6-2.4) K/uL Glades # (Auto) 0.2 (0.0-0.8) K/uL Eos # (Auto) 0.1 (0.0-0.7) K/uL Baso # (Auto) 0.0 (0.0-0.1) K/uL Nucleated RBC % 0.0 /100WBC Nucleated RBCs # 0 K/uL Sodium 139 (136-148) mmol/L Potassium 3.6 (3.5-5.1) mmol/L Chloride 103 (98-107) mmol/L Carbon Dioxide 27.3 (21.0-32.0) mmol/L BUN 5 L (7.0-18.0) mg/dL Creatinine 0.7 L (0.8-1.3) mg/dL Est Cr Clr Drug Dosing 122.14 mL/min Estimated GFR (MDRD) > 60.0 ml/min Glucose 91 (74-106) mg/dL Calcium 8.4 L (8.5-10.1) mg/dL Total Bilirubin 0.7 (0.2-1.0) mg/dL AST 80 H (15-37) IU/L ALT 43 (14-63) IU/L Alkaline Phosphatase 65 (46-116) U/L Total Protein 6.1 L (6.4-8.2) g/dL Albumin 3.1 L (3.4-5.0) g/dL Globulin 3.0 (2.6-4.0) g/dL Albumin/Globulin Ratio 1.0 (0.9-1.6) Med Orders - Current: Current Medications Folic Acid (Folic Acid) 1 mg PO DAILY [facility] Last Admin: 09/07/20 08:50 Dose: 1 mg Documented by: Thiamine HCl 100 mg/ Sodium (Chloride) 101 mls @ 202 mls/hr IV DAILY [facility] Last Admin: 09/07/20 09:22 Dose: 202 mls/hr Documented by: Lactated Ringer's (Ringers, Lactated) 1,000 mls @ 100 mls/hr IV Q10H [facility] Last Admin: 09/07/20 08:50 Dose: 100 mls/hr Documented by: Lorazepam (Ativan) 0 mg IVPUSH Q4H PRN; Protocol PRN Reason: CIWAA Last Admin: 09/06/20 08:11 Dose: 1 mg Documented by: Nicotine (Habitrol) 14 mg TRDERM DAILY [facility] Last Admin: 09/07/20 08:50 Dose: 14 mg Documented by: Ondansetron HCl (Zofran) 4 mg IVPUSH Q4H PRN PRN Reason: Nausea Last Admin: 09/06/20 07:44 Dose: 4 mg Documented by: Discontinued Medications Diazepam (Valium) 5 mg PO BID [facility] Last Admin: 09/06/20 21:01 Dose: 5 mg Documented by: Sodium Chloride (Normal Saline) 1,000 mls @ 999 mls/hr IV STAT ONE Stop: 09/05/20 12:41 Last Admin: 09/05/20 12:09 Dose: 999 mls/hr Documented by: Multivitamins/Minerals 10 ml/Thiamine HCl 100 mg/ Folic Acid 1 mg/ Sodium Chloride 1,011.2 mls @ 999 mls/hr IV ONETIME ONE Stop: 09/05/20 13:28 Last Admin: 09/05/20 13:13 Dose: 999 mls/hr Documented by: Magnesium Sulfate (Magnesium Sulfate In Water Premix) 2 gm in 50 mls @ 50 mls/hr IV ONETIME ONE Stop: 09/05/20 16:44 Last Admin: 09/05/20 16:00 Dose: 50 mls/hr Documented by: Magnesium Sulfate 1 gm/ Sodium (Chloride) 52 mls @ 104 mls/hr IV ONETIME ONE Stop: 09/06/20 09:14 Last Admin: 09/06/20 09:55 Dose: 104 mls/hr Documented by: Lorazepam (Ativan) 1 mg IVPUSH ONETIME ONE Stop: 09/05/20 11:52 Last Admin: 09/05/20 12:08 Dose: 1 mg Documented by: Lorazepam (Ativan) 1 mg IVPUSH ONETIME ONE Stop: 09/05/20 12:12 Last Admin: 09/05/20 12:16 Dose: 1 mg Documented by: Magnesium Sulfate (Magnesium Sulfate In Water Premix) 2 gm IV ONETIME ONE Stop: 09/05/20 15:30 - Exam Quality Assessment: No: Supplemental Oxygen General: Alert, Oriented, Cooperative HEENT: EOMI Neck: Supple Lungs: Clear to Auscultation, Normal Respiratory Effort Cardiovascular: Regular Rate, Regular Rhythm GI/Abdominal Exam: Soft, Non-Tender Extremities: Normal Inspection Neurological: No New Focal Deficit Psy/Mental Status: Alert, Depressed Sepsis Event Note - Evaluation Sepsis Screening Result: No Definite Risk - Focused Exam Vital Signs: Vital Signs Temp Pulse Resp BP Pulse Ox 09/07/20 12:00 98.4 F 82 18 133/76 96 09/07/20 08:00 97.9 F 80 18 124/60 96 09/07/20 04:00 97.6 F 84 16 118/86 98 - Problem List Review Problem List Initiated/Reviewed/Updated: Yes - My Orders Last 24 Hours: My Active Orders 09/08/20 05:11 CBC WITH AUTO DIFF [HEME] AM COMPREHENSIVE METABOLIC PN,CMP [CHEM] AM 09/09/20 05:11 CBC WITH AUTO DIFF [HEME] AM COMPREHENSIVE METABOLIC PN,CMP [CHEM] AM - Plan Plan:: 50 yo male admitted for ETOH detox. Day # 3 of ETOH withdrawal: Latest CIWAA: 2 ; continue PRN Ativan Wean Valium 5 mg at night and wean down as needed. Continue folic/thiamin supplementation. Continue gentle hydration of LR 100 cc/hr ; total 1L in light of Nausea; Zofran PRN Continue nicotine patch. Hypomagnesemia: 1 gram Mg given this AM . <Isaiah Esparza - Last Filed: 09/07/20 20:26> - Patient Data Vitals - Most Recent: Last Vital Signs Temp 36.7 C 09/07/20 16:09 Pulse 84 09/07/20 16:09 Resp 20 09/07/20 16:09 BP 124/81 09/07/20 16:09 Pulse Ox 94 L 09/07/20 16:09 I&O - Last 24 Hours: Intake & Output 09/07/20 09/07/20 09/07/20 06:59 14:59 22:59 Intake Total 1604 2000 Output Total 500 Balance 1104 2000 Lab Results Last 24 Hours: Laboratory Results - last 24 hr 09/07/20 09/07/20 Range/Units 05:41 05:41 WBC 2.97 L (4.0-11.0) K/uL RBC 3.45 L (4.50-5.90) M/uL Hgb 12.8 L (13.0-17.0) g/dL Hct 38.0 (38.0-50.0) % MCV 110.1 H (80.0-98.0) fL MCH 37.1 H (27.0-32.0) pg MCHC 33.7 (31.0-37.0) g/dL RDW Std Deviation 55.1 (28.0-62.0) fl RDW Coeff of Nia 14 (11.0-15.0) % Plt Count 50 L (150-400) K/uL MPV 11.20 (7.40-12.00) fL Neut % (Auto) 53.1 (48.0-80.0) % Lymph % (Auto) 35.7 (16.0-40.0) % Glades % (Auto) 7.1 (0.0-15.0) % Eos % (Auto) 3.4 (0.0-7.0) % Baso % (Auto) 0.7 (0.0-1.5) % Neut # (Auto) 1.6 (1.4-5.7) K/uL Lymph # (Auto) 1.1 (0.6-2.4) K/uL Glades # (Auto) 0.2 (0.0-0.8) K/uL Eos # (Auto) 0.1 (0.0-0.7) K/uL Baso # (Auto) 0.0 (0.0-0.1) K/uL Nucleated RBC % 0.0 /100WBC Nucleated RBCs # 0 K/uL Sodium 139 (136-148) mmol/L Potassium 3.6 (3.5-5.1) mmol/L Chloride 103 (98-107) mmol/L Carbon Dioxide 27.3 (21.0-32.0) mmol/L BUN 5 L (7.0-18.0) mg/dL Creatinine 0.7 L (0.8-1.3) mg/dL Est Cr Clr Drug Dosing 122.14 mL/min Estimated GFR (MDRD) > 60.0 ml/min Glucose 91 (74-106) mg/dL Calcium 8.4 L (8.5-10.1) mg/dL Total Bilirubin 0.7 (0.2-1.0) mg/dL AST 80 H (15-37) IU/L ALT 43 (14-63) IU/L Alkaline Phosphatase 65 (46-116) U/L Total Protein 6.1 L (6.4-8.2) g/dL Albumin 3.1 L (3.4-5.0) g/dL Globulin 3.0 (2.6-4.0) g/dL Albumin/Globulin Ratio 1.0 (0.9-1.6) Med Orders - Current: Current Medications Folic Acid (Folic Acid) 1 mg PO DAILY [facility] Last Admin: 09/07/20 08:50 Dose: 1 mg Documented by: Thiamine HCl 100 mg/ Sodium (Chloride) 101 mls @ 202 mls/hr IV DAILY [facility] Last Admin: 09/07/20 09:22 Dose: 202 mls/hr Documented by: Lactated Ringer's (Ringers, Lactated) 1,000 mls @ 100 mls/hr IV Q10H [facility] Last Admin: 09/07/20 20:19 Dose: 100 mls/hr Documented by: Lorazepam (Ativan) 0 mg IVPUSH Q4H PRN; Protocol PRN Reason: CIWAA Last Admin: 09/06/20 08:11 Dose: 1 mg Documented by: Nicotine (Habitrol) 14 mg TRDERM DAILY [facility] Last Admin: 09/07/20 08:50 Dose: 14 mg Documented by: Ondansetron HCl (Zofran) 4 mg IVPUSH Q4H PRN PRN Reason: Nausea Last Admin: 09/06/20 07:44 Dose: 4 mg Documented by: Discontinued Medications Diazepam (Valium) 5 mg PO BID [facility] Last Admin: 09/06/20 21:01 Dose: 5 mg Documented by: Sodium Chloride (Normal Saline) 1,000 mls @ 999 mls/hr IV STAT ONE Stop: 09/05/20 12:41 Last Admin: 09/05/20 12:09 Dose: 999 mls/hr Documented by: Multivitamins/Minerals 10 ml/Thiamine HCl 100 mg/ Folic Acid 1 mg/ Sodium Chloride 1,011.2 mls @ 999 mls/hr IV ONETIME ONE Stop: 09/05/20 13:28 Last Admin: 09/05/20 13:13 Dose: 999 mls/hr Documented by: Magnesium Sulfate (Magnesium Sulfate In Water Premix) 2 gm in 50 mls @ 50 mls/hr IV ONETIME ONE Stop: 09/05/20 16:44 Last Admin: 09/05/20 16:00 Dose: 50 mls/hr Documented by: Magnesium Sulfate 1 gm/ Sodium (Chloride) 52 mls @ 104 mls/hr IV ONETIME ONE Stop: 09/06/20 09:14 Last Admin: 09/06/20 09:55 Dose: 104 mls/hr Documented by: Lorazepam (Ativan) 1 mg IVPUSH ONETIME ONE Stop: 09/05/20 11:52 Last Admin: 09/05/20 12:08 Dose: 1 mg Documented by: Lorazepam (Ativan) 1 mg IVPUSH ONETIME ONE Stop: 09/05/20 12:12 Last Admin: 09/05/20 12:16 Dose: 1 mg Documented by: Magnesium Sulfate (Magnesium Sulfate In Water Premix) 2 gm IV ONETIME ONE Stop: 09/05/20 15:30 Sepsis Event Note - Focused Exam Vital Signs: Vital Signs Temp Pulse Resp BP BP Pulse Ox 09/07/20 16:09 36.7 C 84 20 124/81 94 L 09/07/20 14:01 37.1 C 80 18 140/101 H 95 09/07/20 12:00 36.9 C 82 18 133/76 96 - Problem List & Annotations (1) Alcohol withdrawal syndrome SNOMED Code(s): 499581669 Code(s): F10.239 - ALCOHOL DEPENDENCE WITH WITHDRAWAL, UNSPECIFIED Status: Acute Current Visit: Yes Qualifiers: Complication of substance-induced condition: uncomplicated Qualified Code(s): F10.230 - Alcohol dependence with withdrawal, uncomplicated (2) Hypomagnesemia SNOMED Code(s): 069173365 Code(s): E83.42 - HYPOMAGNESEMIA Status: Acute Current Visit: Yes - My Orders Last 24 Hours: I have seen and evaluated the patient. I have discussed findings and treatment plan with resident. I agree with the assessment and plan in the following note.
[2020-09-08] MEDS: Lactated Ringers 1,000 ML IV SCH (06:28)
[2020-09-08 07:56] LABS: BLOOD UREA NITROGEN,BUN 7 mg/dL (7.0-18.0); CARBON DIOXIDE,CO2 25.1 mmol/L (21.0-32.0); CHLORIDE,CL 103 mmol/L (98-107); GLUCOSE RANDOM 100 mg/dL (74-106); POTASSIUM,K 3.6 mmol/L (3.5-5.1); SODIUM,NA 138 mmol/L (136-148)
[2020-09-08] MEDS ORDERED: Magnesium Sulfate/Water 2 GM/50 ML BAG IV ONE (08:43)
--- NOTE | 2020-09-08 09:08 | PCM.DCSUM1 ---
<Rayray Garces - Last Filed: 09/08/20 11:52> Discharge Summary - Hospital Course Free Text/Narrative:: Patient is a 50-year-old male who presented to the emergency room with alcohol withdrawal symptoms. He states he has had a longstanding history with alcohol abuse and recently went on a 2-week pandya in which he has been drinking 750 mL of vodka daily. Prior to this pandya he had completed alcohol treatment at [facility] in [place]. States he has seizures when trying to "come off on my own". Patient's last drink was last evening around midnight. He states he woke up this morning feeling tremulous, anxious and slightly nauseated. He is requesting help with abstaining from alcohol use. Patient denies any fever, chills, headache, change in vision, syncope or near syncope. Denies any chest pain, back pain, shortness of breath or cough. Denies any abdominal pain, nausea, vomiting, diarrhea, constipation or dysuria. Has not noted any blood in urine or stool. Patient has been eating and drinking appropriately. Hospital course: patient was placed on CIWAA+ativan protocol w. IV fluids. Highest CIWAA score was 14 and responded well to Ativan and Valium 5m BID x 2 days. electrolyes replaced as needed. Withdrawal symptoms included lightheadedness; tremulousness and nausea. Improved throughout stay. Started on MV + folic/thiamin daily w. jamee for Wernickes. Discussed ETOH therapy and possibly return to outpatient rehab,. Day of discharge pt. felt better and requested discharge. Sent home w. Rx of Thaime/foalte supplementation. Advised to follow up with PCP - Discharge Data Discharge Date: 09/08/20 Discharge Disposition: Home, Self-Care 01 Condition: Stable - Referral to Home Health Primary Care Physician: PCP None - Patient Instructions Diet: No Alcoholic Beverages - Discharge Plan *PRESCRIPTION DRUG MONITORING PROGRAM REVIEWED*: No *COPY OF PRESCRIPTION DRUG MONITORING REPORT IN PATIENT LORENA: No Prescriptions/Med Rec: Folic Acid 1 mg PO DAILY 30 Days #30 tablet Magnesium Oxide [Magnesium] 400 mg PO DAILY 7 Days #7 capsule Thiamine Mononitrate (Vit B1) [Vitamin B-1] 100 mg PO DAILY 30 Days #30 tablet Home Medications: Home Meds Folic Acid 1 mg PO DAILY 30 Days #30 tablet 09/07/20 [Rx] Thiamine Mononitrate (Vit B1) [Vitamin B-1] 100 mg PO DAILY 30 Days #30 tablet 09/07/20 [Rx] Magnesium Oxide [Magnesium] 400 mg PO DAILY 7 Days #7 capsule 09/08/20 [Rx] Patient Handouts: Alcohol Use Disorder, Alcohol Withdrawal Syndrome, Vitamin B12 and Folate Test, Thiamine, Vitamin B1 tablets Referrals: Prema Dudley PA [Physician Braille Operator] - 09/15/20 2:00 pm - Discharge Summary/Plan Comment DC Time >30 min.: No - Patient Data Vitals - Most Recent: Last Vital Signs Temp 98.1 F 09/08/20 04:21 Pulse 68 09/08/20 04:21 Resp 19 09/08/20 04:21 BP 135/88 09/08/20 04:21 Pulse Ox 94 L 09/08/20 04:21 Weight - Most Recent: 78.471 kg I&O - Last 24 hours: Intake & Output 09/07/20 09/08/20 09/08/20 22:59 06:59 14:59 Intake Total 1999 1850 Output Total 1500 Balance 2000 350 Lab Results - Last 24 hrs: Laboratory Results - last 24 hr 09/08/20 09/08/20 Range/Units 04:56 04:56 WBC 2.94 L (4.0-11.0) K/uL RBC 3.43 L (4.50-5.90) M/uL Hgb 12.6 L (13.0-17.0) g/dL Hct 37.4 L (38.0-50.0) % MCV 109.0 H (80.0-98.0) fL MCH 36.7 H (27.0-32.0) pg MCHC 33.7 (31.0-37.0) g/dL RDW Std Deviation 53.8 (28.0-62.0) fl RDW Coeff of Nia 14 (11.0-15.0) % Plt Count 51 L (150-400) K/uL MPV 11.10 (7.40-12.00) fL Neut % (Auto) 46.3 L (48.0-80.0) % Lymph % (Auto) 39.1 (16.0-40.0) % Lamb % (Auto) 10.5 (0.0-15.0) % Eos % (Auto) 3.4 (0.0-7.0) % Baso % (Auto) 0.7 (0.0-1.5) % Neut # (Auto) 1.4 (1.4-5.7) K/uL Lymph # (Auto) 1.2 (0.6-2.4) K/uL Lamb # (Auto) 0.3 (0.0-0.8) K/uL Eos # (Auto) 0.1 (0.0-0.7) K/uL Baso # (Auto) 0.0 (0.0-0.1) K/uL Nucleated RBC % 0.0 /100WBC Nucleated RBCs # 0 K/uL Sodium 138 (136-148) mmol/L Potassium 3.6 (3.5-5.1) mmol/L Chloride 103 (98-107) mmol/L Carbon Dioxide 25.1 (21.0-32.0) mmol/L BUN 7 (7.0-18.0) mg/dL Creatinine 0.7 L (0.8-1.3) mg/dL Est Cr Clr Drug Dosing 122.14 mL/min Estimated GFR (MDRD) > 60.0 ml/min Glucose 100 (74-106) mg/dL Calcium 8.6 (8.5-10.1) mg/dL Magnesium 1.6 L (1.8-2.4) mg/dL Total Bilirubin 0.5 (0.2-1.0) mg/dL AST 84 H (15-37) IU/L ALT 61 (14-63) IU/L Alkaline Phosphatase 60 (46-116) U/L Total Protein 6.0 L (6.4-8.2) g/dL Albumin 3.0 L (3.4-5.0) g/dL Globulin 3.0 (2.6-4.0) g/dL Albumin/Globulin Ratio 1.0 (0.9-1.6) Med Orders - Current: Current Medications Folic Acid (Folic Acid) 1 mg PO DAILY [facility] Last Admin: 09/07/20 08:50 Dose: 1 mg Documented by: Thiamine HCl 100 mg/ Sodium (Chloride) 101 mls @ 202 mls/hr IV DAILY [facility] Last Admin: 09/07/20 09:22 Dose: 202 mls/hr Documented by: Lactated Ringer's (Ringers, Lactated) 1,000 mls @ 100 mls/hr IV Q10H [facility] Last Admin: 09/08/20 06:28 Dose: 100 mls/hr Documented by: Magnesium Sulfate (Magnesium Sulfate In Water Premix) 2 gm in 50 mls @ 50 mls/hr IV ONETIME ONE Stop: 09/08/20 09:42 Lorazepam (Ativan) 0 mg IVPUSH Q4H PRN; Protocol PRN Reason: CIWAA Last Admin: 09/06/20 08:11 Dose: 1 mg Documented by: Nicotine (Habitrol) 14 mg TRDERM DAILY [facility] Last Admin: 09/07/20 08:50 Dose: 14 mg Documented by: Ondansetron HCl (Zofran) 4 mg IVPUSH Q4H PRN PRN Reason: Nausea Last Admin: 09/06/20 07:44 Dose: 4 mg Documented by: Discontinued Medications Diazepam (Valium) 5 mg PO BID [facility] Last Admin: 09/06/20 21:01 Dose: 5 mg Documented by: Sodium Chloride (Normal Saline) 1,000 mls @ 999 mls/hr IV STAT ONE Stop: 09/05/20 12:41 Last Admin: 09/05/20 12:09 Dose: 999 mls/hr Documented by: Multivitamins/Minerals 10 ml/Thiamine HCl 100 mg/ Folic Acid 1 mg/ Sodium Chloride 1,011.2 mls @ 999 mls/hr IV ONETIME ONE Stop: 09/05/20 13:28 Last Admin: 09/05/20 13:13 Dose: 999 mls/hr Documented by: Magnesium Sulfate (Magnesium Sulfate In Water Premix) 2 gm in 50 mls @ 50 mls/hr IV ONETIME ONE Stop: 09/05/20 16:44 Last Admin: 09/05/20 16:00 Dose: 50 mls/hr Documented by: Magnesium Sulfate 1 gm/ Sodium (Chloride) 52 mls @ 104 mls/hr IV ONETIME ONE Stop: 09/06/20 09:14 Last Admin: 09/06/20 09:55 Dose: 104 mls/hr Documented by: Lorazepam (Ativan) 1 mg IVPUSH ONETIME ONE Stop: 09/05/20 11:52 Last Admin: 12/13/20 12:08 Dose: 1 mg Documented by: Lorazepam (Ativan) 1 mg IVPUSH ONETIME ONE Stop: 09/05/20 12:12 Last Admin: 09/05/20 12:16 Dose: 1 mg Documented by: Magnesium Sulfate (Magnesium Sulfate In Water Premix) 2 gm IV ONETIME ONE Stop: 09/05/20 15:30 <Isaiah Esparza - Last Filed: 09/08/20 23:16> Discharge Summary - Hospital Course Free Text/Narrative:: I have seen and evaluated the patient and agree with the residents note unless specified in my note - Referral to Home Health Primary Care Physician: PCP None - Discharge Diagnosis/Problem(s) (1) Alcohol withdrawal syndrome SNOMED Code(s): 769987713 ICD Code: F10.239 - ALCOHOL DEPENDENCE WITH WITHDRAWAL, UNSPECIFIED Status: Acute Qualifiers: Complication of substance-induced condition: uncomplicated Qualified Code(s): F10.230 - Alcohol dependence with withdrawal, uncomplicated (2) Hypomagnesemia SNOMED Code(s): 738322276 ICD Code: E83.42 - HYPOMAGNESEMIA Status: Acute - Patient Data Vitals - Most Recent: Last Vital Signs Temp 37.1 C 09/08/20 08:00 Pulse 71 09/08/20 08:00 Resp 18 09/08/20 08:00 BP 143/86 H 09/08/20 08:00 Pulse Ox 96 09/08/20 08:00 Lab Results - Last 24 hrs: Laboratory Results - last 24 hr 09/08/20 09/08/20 Range/Units 04:56 04:56 WBC 2.94 L (4.0-11.0) K/uL RBC 3.43 L (4.50-5.90) M/uL Hgb 12.6 L (13.0-17.0) g/dL Hct 37.4 L (38.0-50.0) % MCV 109.0 H (80.0-98.0) fL MCH 36.7 H (27.0-32.0) pg MCHC 33.7 (31.0-37.0) g/dL RDW Std Deviation 53.8 (28.0-62.0) fl RDW Coeff of Nia 14 (11.0-15.0) % Plt Count 51 L (150-400) K/uL MPV 11.10 (7.40-12.00) fL Neut % (Auto) 46.3 L (48.0-80.0) % Lymph % (Auto) 39.1 (16.0-40.0) % Lamb % (Auto) 10.5 (0.0-15.0) % Eos % (Auto) 3.4 (0.0-7.0) % Baso % (Auto) 0.7 (0.0-1.5) % Neut # (Auto) 1.4 (1.4-5.7) K/uL Lymph # (Auto) 1.2 (0.6-2.4) K/uL Lamb # (Auto) 0.3 (0.0-0.8) K/uL Eos # (Auto) 0.1 (0.0-0.7) K/uL Baso # (Auto) 0.0 (0.0-0.1) K/uL Nucleated RBC % 0.0 /100WBC Nucleated RBCs # 0 K/uL Sodium 138 (136-148) mmol/L Potassium 3.6 (3.5-5.1) mmol/L Chloride 103 (98-107) mmol/L Carbon Dioxide 25.1 (21.0-32.0) mmol/L BUN 7 (7.0-18.0) mg/dL Creatinine 0.7 L (0.8-1.3) mg/dL Est Cr Clr Drug Dosing 122.14 mL/min Estimated GFR (MDRD) > 60.0 ml/min Glucose 100 (74-106) mg/dL Calcium 8.6 (8.5-10.1) mg/dL Magnesium 1.6 L (1.8-2.4) mg/dL Total Bilirubin 0.5 (0.2-1.0) mg/dL AST 84 H (15-37) IU/L ALT 61 (14-63) IU/L Alkaline Phosphatase 60 (46-116) U/L Total Protein 6.0 L (6.4-8.2) g/dL Albumin 3.0 L (3.4-5.0) g/dL Globulin 3.0 (2.6-4.0) g/dL Albumin/Globulin Ratio 1.0 (0.9-1.6) Med Orders - Current: Current Medications Discontinued Medications Diazepam (Valium) 5 mg PO BID [facility] Last Admin: 09/06/20 21:01 Dose: 5 mg Documented by: Folic Acid (Folic Acid) 1 mg PO DAILY [facility] Last Admin: 09/08/20 09:58 Dose: 1 mg Documented by: Sodium Chloride (Normal Saline) 1,000 mls @ 999 mls/hr IV STAT ONE Stop: 09/05/20 12:41 Last Admin: 09/05/20 12:09 Dose: 999 mls/hr Documented by: Multivitamins/Minerals 10 ml/Thiamine HCl 100 mg/ Folic Acid 1 mg/ Sodium Chloride 1,011.2 mls @ 999 mls/hr IV ONETIME ONE Stop: 09/05/20 13:28 Last Admin: 09/05/20 13:13 Dose: 999 mls/hr Documented by: Thiamine HCl 100 mg/ Sodium (Chloride) 101 mls @ 202 mls/hr IV DAILY [facility] Last Admin: 09/08/20 11:14 Dose: 202 mls/hr Documented by: Magnesium Sulfate (Magnesium Sulfate In Water Premix) 2 gm in 50 mls @ 50 mls/hr IV ONETIME ONE Stop: 09/05/20 16:44 Last Admin: 09/05/20 16:00 Dose: 50 mls/hr Documented by: Magnesium Sulfate 1 gm/ Sodium (Chloride) 52 mls @ 104 mls/hr IV ONETIME ONE Stop: 09/06/20 09:14 Last Admin: 09/06/20 09:55 Dose: 104 mls/hr Documented by: Lactated Ringer's (Ringers, Lactated) 1,000 mls @ 100 mls/hr IV Q10H [facility] Last Admin: 09/08/20 06:28 Dose: 100 mls/hr Documented by: Magnesium Sulfate (Magnesium Sulfate In Water Premix) 2 gm in 50 mls @ 50 mls/hr IV ONETIME ONE Stop: 09/08/20 09:42 Last Admin: 09/08/20 10:01 Dose: 50 mls/hr Documented by: Lorazepam (Ativan) 1 mg IVPUSH ONETIME ONE Stop: 09/05/20 11:52 Last Admin: 09/05/20 12:08 Dose: 1 mg Documented by: Lorazepam (Ativan) 1 mg IVPUSH ONETIME ONE Stop: 09/05/20 12:12 Last Admin: 09/05/20 12:16 Dose: 1 mg Documented by: Lorazepam (Ativan) 0 mg IVPUSH Q4H PRN; Protocol PRN Reason: CIWAA Last Admin: 09/06/20 08:11 Dose: 1 mg Documented by: Magnesium Sulfate (Magnesium Sulfate In Water Premix) 2 gm IV ONETIME ONE Stop: 09/05/20 15:30 Nicotine (Habitrol) 14 mg TRDERM DAILY [facility] Last Admin: 09/08/20 09:58 Dose: 14 mg Documented by: Ondansetron HCl (Zofran) 4 mg IVPUSH Q4H PRN PRN Reason: Nausea Last Admin: 09/06/20 07:44 Dose: 4 mg Documented by:
[2020-09-08] MEDS: Folic Acid 1 MG Tab PO SCH (09:58)
[2020-09-08] MEDS: Nicotine 14 MG/24 Hr Patch TRDERM SCH (09:58)
[2020-09-08] MEDS: Thiamine 100 MG in Sodium Chloride 0.9% 100 ML IV SCH (11:14)
== END 2020-09-08 12:56 | disposition home or self-care (01) | DRG 897 ==
LOC: MW.ED 11:34 → MW.MS 14:31
PROVIDERS: ADMIT Internal Medicine; ATTEND Internal Medicine
DX: F10.230 Alcohol dependence with withdrawal, uncomplicated (principal); E83.42 Hypomagnesemia; Z20.828 Contact with and (suspected) exposure to other viral communicable diseases; R00.0 Tachycardia, unspecified
CPT/HCPCS: 36415; 80053; 80305-QW; 80307; 81003; 83735; 84100; 85025; 93005; 93010; 96365; 96375; 99284; 99285-25; A9270-GY; J2060; J2405; J3411; J3475; J7030; J7120; U0002